=== PATIENT | male | born 1990 | race Caucasian/White ===

== ENCOUNTER 2021-05-27 07:44 | Day surgery (SDC) | payer BC ==
[~2021-05-27 07:44] MED LIST: Lactated Ringers 1,000 ML IV SCH; Sodium Chloride 0.9% 10 ML SDV IV PRN; Sodium Chloride 0.9% 10 ML Syringe FLUSH PRN; Sodium Chloride 0.9% 2.5 ML Syringe FLUSH PRN; propofoL 50 ML ONE
[2021-05-27] MEDS ORDERED: fentaNYL 100 MCG/2 ML SDV ONE (09:03)
--- NOTE | 2021-05-27 09:25 | PCM.PREANE ---
Preanesthetic Assessment - Anesthesia/Transfusion/Family Hx Anesthesia History: Prior Anesthesia Without Reaction Other Type of Anesthesia Reaction Comment: was told he required more anesthesia than most Transfusion History: No Prior Transfusion(s) - Physical Assessment NPO Status Date: 05/26/21 NPO Status Time: 09:00 Vital Signs: Last Vital Signs Temp 36.1 C 05/27/21 08:33 Pulse 80 05/27/21 08:33 Resp 15 05/27/21 08:33 BP 130/76 05/27/21 08:33 Pulse Ox 97 05/27/21 08:33 Height: 6 ft 4 in Weight: 126.099 kg ASA Class: 2 Airway Class: Mallampati = 3 Thyro-Mental Finger Breadths: 3 Mouth Opening Finger Breadths: 3 - Lab Values: Laboratory Last Values SARS-CoV-2 RNA (BARBARA) NEGATIVE (NEGATIVE) 05/27/21 07:30 - Allergies Allergies/Adverse Reactions: Allergies Allergy/AdvReac Type Severity Reaction Status Date / Time cefaclor [From Ceclor] Allergy Hives Verified 05/26/21 09:29 - Acknowledgements Anesthesia Type Planned: General Anesthesia Pt an Appropriate Candidate for the Planned Anesthesia: Yes Alternatives and Risks of Anesthesia Discussed w Pt/Guardian: Yes Pt/Guardian Understands and Agrees with Anesthesia Plan: Yes PreAnesthesia Questionnaire HEENT History: Reports: Other (See Below) Other HEENT History: has one front tooth that is "fake" Cardiovascular History: Reports: High Cholesterol Respiratory History: Other Respiratory History: has a sleep study scheduled Gastrointestinal History: Reports: Other (See Below) Other Gastrointestinal History: recent abdominal pain Genitourinary History: Reports: None Musculoskeletal History: Reports: Fracture Other Musculoskeletal History: hx of fx left clavicle and hand Neurological History: Reports: Concussion Other Neuro History: hx of 4 concussions Psychiatric History: Reports: ADHD, Addiction, Anxiety, Depression, PTSD, Other (See Below) Other Psychiatric History: Insomnia, rarely takes medication for ADHD Endocrine/Metabolic History: Reports: Obesity/BMI 30+, Vitamin D Deficiency Hematologic History: Reports: None Immunologic History: Reports: None Oncologic (Cancer) History: Reports: None Dermatologic History: Reports: None - Past Surgical History Head Surgeries/Procedures: Reports: None HEENT Surgical History: Reports: Adenoidectomy, Naso-Sinus Surgery, Tonsillectomy Other HEENT Surgeries/Procedures: hx of Septoplasty with Turbinate reduction Cardiovascular Surgical History: Reports: None Respiratory Surgical History: Reports: None GI Surgical History: Reports: None Male Surgical History: Reports: None Endocrine Surgical History: Reports: None Neurological Surgical History: Reports: None Musculoskeletal Surgical History: Reports: Other (See Below) Other Musculoskeletal Surgeries/Procedures:: tendon repair and removal of foreign body in foot (fish bite) Oncologic Surgical History: Reports: None Dermatological Surgical History: Reports: None - SUBSTANCE USE Tobacco Use Status *Q: Current Every Day Tobacco User Tobacco Use Within Last Twelve Months: Cigarettes Recreational Drug Use History: Yes - HOME MEDS Home Medications: Home Meds Dextroamphetamine/Amphetamine [Adderall 20 mg Tablet] 20 mg PO BID PRN 05/26/21 [History] Dicyclomine [Bentyl] 10 - 20 mg PO Q6H PRN 05/26/21 [History] Ergocalciferol (Vitamin D2) [Drisdol] 1.25 mg PO WEEKLY 05/26/21 [History] Zolpidem [Ambien] 10 mg PO BEDTIME PRN 05/26/21 [History] atorvaSTATin Calcium [Atorvastatin Calcium] 20 mg PO BEDTIME 05/26/21 [History] - CURRENT (IN HOUSE) MEDS Current Meds: Current Medications Lactated Ringer's (Ringers, Lactated) 1,000 mls @ 125 mls/hr IV ASDIRECTED SAVANNAH Last Admin: 05/27/21 08:52 Dose: 125 mls/hr Documented by: Sodium Chloride (Sodium Chloride 0.9% 10 Ml Syringe) 10 ml FLUSH ASDIRECTED PRN PRN Reason: Keep Vein Open Sodium Chloride (Sodium Chloride 0.9% 2.5 Ml Syringe) 2.5 ml FLUSH ASDIRECTED PRN PRN Reason: Keep Vein Open Sodium Chloride (Sodium Chloride 0.9% 10 Ml Syringe) 10 ml FLUSH ASDIRECTED PRN PRN Reason: Keep Vein Open Sodium Chloride (Sodium Chloride 0.9% 2.5 Ml Syringe) 2.5 ml FLUSH ASDIRECTED PRN PRN Reason: Keep Vein Open Sodium Chloride (Sodium Chloride 0.9% 10 Ml Sdv) 10 ml IV ASDIRECTED PRN PRN Reason: IV Use Discontinued Medications Fentanyl (Fentanyl 100 Mcg/2 Ml Sdv) Confirm Administered Dose 100 mcg .ROUTE .STK-MED ONE Stop: 05/27/21 09:04 Propofol (Diprivan 50 Ml) Confirm Administered Dose 50 mls @ as directed .ROUTE .ST-MED ONE Stop: 05/27/21 07:20 Lidocaine HCl (Lidocaine 1% 5 Ml Sdv) Confirm Administered Dose 5 ml .ROUTE .STK-MED ONE Stop: 05/27/21 07:28
[2021-05-27] MEDS ORDERED: Propofol 200 MG/20 ML SDV ONE (10:03)
[2021-05-27] MEDS ORDERED: ePHEDrine 50 MG/ML SDV ONE (10:16)
--- NOTE | 2021-05-27 10:29 | PCM.OPNOTE ---
- General Post-Op/Procedure Note Date of Surgery/Procedure: 05/27/21 Operative Procedure(s): Diagnostic EGD and colonoscopy Findings: Normal appearing EGD and colonoscopy Pre Op Diagnosis: Alternating bowel habits, abdominal pain Post-Op Diagnosis: same Anesthesia Technique: BEBA Primary Surgeon: Stacie Huerta Condition: Good
--- NOTE | 2021-05-27 10:31 | PCM.POSTAN ---
POST ANESTHESIA ASSESSMENT - MENTAL STATUS Mental Status: Alert, Oriented - VITAL SIGNS Vital Signs: Last Vital Signs Temp 36.1 C 05/27/21 08:33 Pulse 80 05/27/21 08:33 Resp 15 05/27/21 08:33 BP 130/76 05/27/21 08:33 Pulse Ox 97 05/27/21 08:33 - RESPIRATORY Respiratory Status: Respiratory Rate WNL, Airway Patent, O2 Saturation Stable - CARDIOVASCULAR CV Status: Pulse Rate WNL, Blood Pressure Stable - GASTROINTESTINAL GI Status: No Symptoms - POST OP HYDRATION Hydration Status: Adequate & Stable
--- NOTE | 2021-05-27 10:31 | PCM48HPAN ---
Post Anesthesia Note - EVALUATION WITHIN 48HRS OF ANESTHETIC Vital Signs in Normal Range: Yes Patient Participated in Evaluation: Yes Respiratory Function Stable: Yes Airway Patent: Yes Cardiovascular Function Stable: Yes Hydration Status Stable: Yes Pain Control Satisfactory: Yes Nausea and Vomiting Control Satisfactory: Yes Mental Status Recovered: Yes Vital Signs: Last Vital Signs Temp 36.1 C 05/27/21 08:33 Pulse 80 05/27/21 08:33 Resp 15 05/27/21 08:33 BP 130/76 05/27/21 08:33 Pulse Ox 97 05/27/21 08:33
--- NOTE | 2021-05-27 12:05 | OR ---
SURGEON: STACIE HUERTA MD DATE OF PROCEDURE: 05/27/2021 PREOPERATIVE DIAGNOSES: Alternating bowel habits, abdominal pain. POSTOPERATIVE DIAGNOSES: Alternating bowel habits, abdominal pain. PROCEDURE PERFORMED: Diagnostic esophagogastroduodenoscopy and colonoscopy with biopsy. PRIMARY SURGEON: Stacie Huerta MD ANESTHESIA: MAC. INSTRUMENT USED: Olympus endoscope and colonoscope. EXTENT OF THE EXAM: To the 2nd portion of duodenum, to the cecum. PREPARATION: Good. LIMITATIONS: None. INDICATIONS FOR EXAMINATION: The patient is a 31-year-old male who presents today with alternating bowel habits associated with abdominal pain. There is a questionable family history of inflammatory bowel disease. The decision was made to proceed with diagnostic EGD and colonoscopy. The patient and I discussed the procedure, expected perioperative course, and the risks. He verbalized understanding and wishes to proceed. PROCEDURE IN DETAIL: The patient was brought to the endoscopy suite and placed in the left lateral decubitus position. A time-out was completed verifying the patient's name, age, date of , allergies, and procedure to be performed. Monitored anesthesia care was induced and continuous oxygen was provided via face mask throughout the procedure. After adequate sedation was achieved, a bite block was placed in the patient's mouth and a well-lubricated endoscope was placed in the patient's mouth and advanced under direct visualization to the level of the 2nd portion of duodenum. This appeared normal and a photograph was taken. The scope was then fully withdrawn while examining the color, texture, anatomy, and integrity of the mucosa of the upper GI tract. The duodenum appeared normal. A biopsy was taken within the 1st portion of the duodenum and sent to Pathology for histologic review. The scope was brought into the stomach and a photograph was taken of the pylorus and GE junction. Both appeared anatomically normal. The gastric mucosa appeared normal. Biopsies were taken of the gastric antrum, body, and fundus, and sent for histologic review and H pylori testing. The scope was then brought into the distal esophagus. The Z-line appeared normal and a photograph was taken. The distal esophageal mucosa and the remainder of the esophagus were free of pathology. The scope was removed and this portion of the procedure terminated. A digital rectal exam was performed. This exam was within normal limits. A well-lubricated colonoscope was inserted in the rectum and advanced under direct visualization to the level of the cecum. The cecum was identified by both visual and anatomic landmarks. A photograph was taken of the cecal cap. I retroflexed the scope and intubated the terminal ileum. This appeared normal and a photograph was taken. The scope was then fully withdrawn while examining the color, texture, anatomy, and integrity of the mucosa from the cecum to the anal canal. The mucosa all appeared normal. Random biopsies were taken of the cecum, ascending colon, transverse colon, sigmoid colon, proximal rectum, which was then labeled as rectal biopsy 1 in the distal rectum, which was labeled as rectal biopsy #2. The scope was then retroflexed within the rectum to allow visualization of the anal canal opening. This appeared normal and a photograph was taken. The scope was then straightened out and fully withdrawn. The cecum to anus time was 13 minutes. The patient tolerated the procedure well and was transferred to the PACU in stable condition. ENDOSCOPIC DIAGNOSES: Alternating bowel habits, abdominal pain. RECOMMENDATIONS: Follow up in clinic in 2 weeks. BETTINA PATTERSON /[id number]
== END 2021-05-27 11:10 | disposition home or self-care (01) ==
LOC: MW.SDS 07:44
PROVIDERS: ATTEND Surgery
DX: R10.9 Unspecified abdominal pain (principal); K31.89 Other diseases of stomach and duodenum; K63.89 Other specified diseases of intestine; K62.89 Other specified diseases of anus and rectum; R19.4 Change in bowel habit; Z01.812 Encounter for preprocedural laboratory examination; Z20.822 Contact with and (suspected) exposure to COVID-19; Z88.8 Allergy status to other drugs, medicaments and biological substances; E78.00 Pure hypercholesterolemia, unspecified; E55.9 Vitamin D deficiency, unspecified; R06.83 Snoring; G47.20 Circadian rhythm sleep disorder, unspecified type; F17.210 Nicotine dependence, cigarettes, uncomplicated
CPT/HCPCS: 43239; 45380; 87635; 88305; 88342; J2704; J3010; J7120; 00813; U0002

== ENCOUNTER 2022-09-27 20:22 | Emergency (ER) | payer OTHER, BC ==
[2022-09-27] MEDS ORDERED: Ibuprofen 400 MG Tab PO ONE (22:41)
[2022-09-27] MEDS ORDERED: Acetaminophen 325 MG Tab PO ONE (22:41)
[2022-09-27] MEDS ORDERED: Cyclobenzaprine 10 MG Tab PO ONE (22:42)
[2022-09-27] MEDS ORDERED: Acetaminophen 500 MG Tab ONE (23:01)
[2022-09-27] MEDS ORDERED: predniSONE 20 MG Tab PO ONE (23:21)
== END 2022-09-28 00:12 | disposition home or self-care (01) ==
LOC: MW.ED 20:22
DX: M25.512 Pain in left shoulder (principal); E66.9 Obesity, unspecified; Z68.34 Body mass index [BMI] 34.0-34.9, adult; Z88.1 Allergy status to other antibiotic agents
CPT/HCPCS: 73030; 99283; A9270

== ENCOUNTER 2024-08-27 04:22 | Emergency (ER) | payer BC, OTHER ==
[2024-08-27] MEDS: Sodium Chloride 0.9% 10 ML Syringe FLUSH PRN (05:13)
[2024-08-27] MEDS: Famotidine 20 MG/2 ML SDV IVPUSH ONE (05:13)
[2024-08-27] MEDS: Sodium Chloride 0.9% 1,000 ML IV ONE (05:13)
[2024-08-27] MEDS: Ketorolac 30 MG/ML SDV IVPUSH ONE (05:13)
[2024-08-27] MEDS: Morphine 4 MG/ML Syringe IVPUSH ONE (05:13)
[2024-08-27 05:14] LABS: BASOPHILS ABSOLUTE AUTO 0.05 K/uL (0.00-0.20); BASOPHILS PERCENT AUTO 0.3 % (0.0-1.0); EOSINOPHILS ABSOLUTE AUTO 0.38 K/uL (0.00-0.45); EOSINOPHILS PERCENT AUTO 2.4 % (0.0-6.0); HEMOGLOBIN 15.9 g/dL (14.0-18.0); IMMATURE GRAN ABSOLUTE AUTO 0.08 K/uL (0.00-0.05); IMMATURE GRAN PERCENT AUTO 0.5 % (0.0-0.4); LYMPHOCYTES ABSOLUTE AUTO 1.39 K/uL (1.00-4.80); LYMPHOCYTES PERCENT AUTO 8.9 % (24.0-44.0); MEAN CORPUSCULAR HEMOGLOBIN 29.9 pg (28.0-32.0); MEAN CORPUSCULAR HGB CONC 34.6 g/dL (32.0-36.0); MEAN CORPUSCULAR VOLUME 86.6 fL (83.0-99.0); MEAN PLATELET VOLUME 8.9 fL (9.4-12.4); MONOCYTES ABSOLUTE AUTO 0.98 K/uL (0.00-0.80); MONOCYTES PERCENT AUTO 6.3 % (0.0-8.0); NEUTROPHILS ABSOLUTE AUTO 12.67 K/uL (1.80-7.70); NEUTROPHILS PERCENT AUTO 81.6 % (41.0-71.0); PLATELET COUNT,PLT 387 K/uL (150-400); RED BLOOD CELL COUNT 5.31 M/uL (4.52-5.90); WHITE BLOOD CELL COUNT,WBC 15.55 K/uL (3.9-11.3)
[2024-08-27] MEDS: Sodium Chloride 0.9% 2.5 ML Syringe FLUSH PRN (05:14)
[2024-08-27] MEDS: droPERidol 5 MG/2 ML SDV IVPUSH ONE (05:23)
[2024-08-27 05:25] LABS: ALBUMIN 4.4 g/dL (3.4-5.0); BILIRUBIN TOTAL 0.6 mg/dL (0.2-1.0); CALCIUM 9.9 mg/dL (8.5-10.1); CARBON DIOXIDE,CO2 19.1 mmol/L (21.0-32.0); CREATININE 1.6 mg/dL (0.8-1.3); EST CRCL DRUG DOSING (CG) 80.62 mL/min; MAGNESIUM 1.5 mg/dL (1.8-2.4); POTASSIUM,K 3.8 mmol/L (3.5-5.1); PROTEIN TOTAL,TP 8.8 g/dL (6.4-8.2)
[2024-08-27 07:18] LABS: APPEARANCE,URINE CLEAR; BILIRUBIN,URINE NEGATIVE (NEGATIVE); COLOR,URINE YELLOW; GLUCOSE,URINE NEGATIVE (NEGATIVE); KETONES,URINE NEGATIVE (NEGATIVE); LEUKOCYTE ESTERASE,URINE NEGATIVE (NEGATIVE); NITRITE,URINE NEGATIVE (NEGATIVE); OCCULT BLOOD,URINE NEGATIVE (NEGATIVE); PH,URINE 5.5 (5.0-8.0); PROTEIN,URINE TRACE mg/dL (NEGATIVE); UROBILINOGEN,URINE 0.2 EU/dL (<2.0)
[2024-08-27] MEDS: Sodium Chloride 0.9% 1,000 ML IV STA (07:20)
[2024-08-27 07:26] LABS: BACTERIA,URINE FEW (NEGATIVE); EPITHELIAL CELLS,URINE RARE (NONE-FEW); MUCUS,URINE MODERATE (NONE-MOD); RBC,URINE 0-2 (0-2/HPF); WBC,URINE 0-1 (0-5/HPF)
[2024-08-27 08:38] LABS: AMPHETAMINES SCREEN, URINE NEGATIVE (CUTOFF=500); BARBITURATE SCREEN,URINE NEGATIVE (CUTOFF=200); BENZODIAZEPINES SCREEN,URINE NEGATIVE (CUTOFF=150); BUPRENORPHINE SCREEN,URINE NEGATIVE (CUTOFF=10); METHADONE SCREEN, URINE NEGATIVE (CUTOFF=200); METHAMPHETAMINES SCREEN, URINE NEGATIVE (CUTOFF=500); OXYCODONE SCREEN,URINE NEGATIVE (CUT0FF=100); PCP SCREEN,URINE NEGATIVE (CUTOFF=25); THC SCREEN,URINE 20 NG/ML NEGATIVE (CUTOFF=50)
[2024-08-27] MEDS: Iopamidol 755 MG/ML 500 ML Multipack Bottle IVPUSH STA (09:18)
== END 2024-08-27 10:23 | disposition home or self-care (01) ==
LOC: MW.ED 04:22
DX: E86.0 Dehydration (principal); R10.9 Unspecified abdominal pain; Z79.899 Other long term (current) drug therapy
CPT/HCPCS: 36415; 71045; 74177; 80053; 80305; 81001; 83690; 83735; 85025; 96361; 96374; 96375; 99285; J1790; J1885; J2270; J3490; J7030; Q9967; 99284